=== PATIENT | female | born 1940 | race Caucasian/White ===

== ENCOUNTER 2016-06-18 09:02 | Observation (INO) | payer OTHER ==
[~2016-06-18] VITALS: Ht 162.6 cm; Wt 70.3 kg
--- NOTE | ~2016-06-18 | D ---
[facility] Angélic[place] [address] DISCHARGE SUMMARY Name: ERICKA NINA Room #: 421-P [facility] Jasper Robb#: [id number] Admission: 06/18/16 Attend Phys: Nazario Holman Discharge: 06/19/16 Date of : 40 Report #: [id number] THIS REPORT FOR: //name// CC: Nazario Garcia DATE OF SERVICE: 06/18/2016 FINAL DIAGNOSES: 1. Chest pain syndrome, status post cardiac catheterization. 2. Hypertension. 3. Hypercholesterolemia. 4. Gastroesophageal reflux disease. 5. Thyroid disease. HOSPITAL COURSE: The patient presented electively for a cardiac catheterization by Dr. Nazario Holman. She was found to have angiographically normal coronary arteries. There may be some mild aortic stenosis. The patient did have problems with the right femoral artery access. She was admitted overnight for observation. She remained hemodynamically stable. The right groin appears to be stable with no evidence for a hematoma. FINAL DISPOSITION: She will continue Protonix 40 mg daily, hydrochlorothiazide 25 mg daily, losartan 50 mg daily, metamizol, meloxicam, aspirin, red yeast rice, eye drops. Imdur will be discontinued. She will follow up with Dr. Holman in his clinic at [facility] within 4 weeks. <ELECTRONICALLY SIGNED> By: Vamsi Jane MD 06/20/16 0805 [id number] MD antonino Dejesus
--- NOTE | ~2016-06-18 | CATHLAB ---
[facility] [place]élic[place] [address] INVASIVE PROCEDURE REPORT Name: ERICKA NINA Room #: 421-P [facility]#: [id number] Admission: 06/18/16 Attend Phys: Nazario Bahena Discharge: 06/19/16 Date of : 40 Date of Service: 06/18/16 1157 Report #: [id number] THIS REPORT FOR: //name// CC: Nazario Garcia DATE OF SERVICE: 06/18/2016 INDICATIONS: A 76-year-old female patient with chest pains and abnormal noninvasive assessment. PROCEDURES: 1. Left heart catheterization. 2. Left and right coronary angiography. 3. Measurement of left ventricular end-diastolic pressures. 4. Supervision of conscious sedation. SUPERVISOR WATERPROOFING: Nazario Holman M.D. BRIEF DESCRIPTION OF PROCEDURE: After informed consent was obtained, the patient was brought to the cardiac catheterization laboratory in stable condition. The patient's right groin was prepped and draped in the usual sterile manner after which lidocaine was then instilled. Utilizing a modified Seldinger technique, the right femoral artery was then accessed. Under fluoroscopic visualization using selective coronary catheters, the right and left coronaries were opacified and visualized. The left ventriculogram was likewise imaged per standard protocol with EDP being measured. Subsequent to this, the sheath was removed, hemostasis achieved. The patient tolerated the procedure well. There were no complications. FINDINGS: 1. Rhythm was sinus throughout the entire procedure. 2. HEMODYNAMICS: A. Aortic pressure 140/71. B. Left ventricular pressure 162/18-22. 3. FLUOROSCOPY: Under fluoroscopic visualization, there was minimal calcific plaquing the cardiopulmonary arteries. No significant plaquing along the valvular or intramyocardial structures of the heart. 4. ANGIOGRAPHY: This is a right coronary dominant system. A. Left main is of normal origin and caliber, bifurcates left anterior descending and left circumflex, free of high-grade disease. B. Left anterior descending is a uczjbtmg-ob-szhxg caliber type 3 vessel, which courses in the anterior interventricular sulcus, giving rise to a large first diagonal branch and septal branch, which are both free of high-grade disease. The LAD then continues in the anterior interventricular sulcus, hooking the apex and terminating the posterior aspect of the left ventricle. C. Left circumflex is a oetnskxe-db-bmvvq caliber vessel, courses posteriorly, [facility] [address] [place] [address] INVASIVE PROCEDURE REPORT Name: ERICKA NINA Daljit Room #: 421-P [facility] [place] .R.#: [id number] Admission: 06/18/16 Attend Phys: Nazario Bahena Discharge: 06/19/16 Date of : 40 Date of Service: 06/18/16 1157 Report #: [id number] giving rise to 3 posterolateral branches, free of high-grade disease. D. Right coronary artery is a large, dominant vessel which courses in the AV groove, giving rise to RV marginal branch. It further then proceeds posteriorly to the crux of the heart. It gives rise to a large posterior descending artery and ejsfoaes-bi-aytxa posterior and posterolateral circulation, all of which are free of high-grade disease. IMPRESSION: 1. Normal coronary arteries. 2. Abnormal hemodynamics with the presence of a 20-mm gradient on aortic pulled back, which may represent mild aortic stenosis. <ELECTRONICALLY SIGNED> By: Nazario Holman MD 06/21/16 1713 1157 1550 Nazario Holman MD /nt
[2016-06-18] MEDS ORDERED: IMDUR 30 MG TAB30 M1 PO (09:27)
[2016-06-18] MEDS ORDERED: HYDROCHLOROTHIA25 M2 PO (09:28)
[2016-06-18] MEDS ORDERED: COZAAR 50 MG TA50 M2 PO (09:28)
[2016-06-18] MEDS ORDERED: PROTONIX40 M1 PO (09:28)
[2016-06-18] MEDS ORDERED: MELOXICAM15 MG PO (09:29)
[2016-06-18] MEDS ORDERED: ASPIR 8181 MG PO (09:30)
[2016-06-18] MEDS ORDERED: RED YEAST RICE600 MG PO (09:30)
[2016-06-18] MEDS ORDERED: METHIMAZOLE5 MG PO (09:30)
[2016-06-18] MEDS ORDERED: BENADRYL25 MG PO (09:30)
[2016-06-18] MEDS ORDERED: CALCIUM 600 +1 EAC1 PO (09:31)
[2016-06-18] MEDS ORDERED: RECLAST 55 MG/1002 IV (09:31)
[2016-06-18] MEDS ORDERED: MIRALAX17 GM PO (09:32)
[2016-06-18] MEDS ORDERED: EYE DROP TEARS15 ML OPHTHALMIC (09:32)
[2016-06-18] MEDS ORDERED: KETOROLAC 0.5% E5 ML OPHTHALMIC (09:33)
[2016-06-18] MEDS ORDERED: BETIMOL15 ML OPHTHALMIC (09:34)
[2016-06-18] MEDS ORDERED: FML 0.1% 10ML10 M1 OPHTHALMIC (09:34)
[2016-06-18 09:40] VITALS: BP 191/86
[2016-06-18 09:59] LABS: MCH 32.1 pg (26.0-34.0); MCHC 34.2 g/dL (28.0-37.0); RBC 4.05 mil/uL (4.20-5.00); RDW 13.3 % (10.5-14.5)
[2016-06-18 10:03] LABS: CALCIUM 9.4 mg/dL (8.5-10.1); CREATININE 0.6 mg/dL (0.6-1.3); POTASSIUM 3.7 mmol/L (3.5-5.1)
[2016-06-18 15:33] VITALS: BP 131/67
[2016-06-18 20:00] VITALS: BP 108/66
[2016-06-19 04:00] VITALS: BP 121/68
[2016-06-19 08:03] VITALS: BP 127/77
[2016-06-19 09:13] VITALS: BP 127/77
== END 2016-06-19 11:30 | disposition home or self-care (01) ==
LOC: CATH 09:02 → 4E 15:06
PROVIDERS: Internal Medicine
DX: I35.0 Nonrheumatic aortic (valve) stenosis (principal); I10 Essential (primary) hypertension; E78.00 Pure hypercholesterolemia, unspecified; K21.9 Gastro-esophageal reflux disease without esophagitis; E07.9 Disorder of thyroid, unspecified